=== PATIENT | male | born 1965 | race Caucasian/White ===

== ENCOUNTER 2016-09-23 08:08 | Day surgery (SDC) | payer MEDICARE, MEDICAID ==
[~2016-09-23] VITALS: Ht 172.7 cm; Wt 108.9 kg
[2016-09-23] VITALS (11 sets, daily range): BP systolic 100–123; BP diastolic 69–77; PULSE 52–79; TEMP 97.4
[2016-09-23 09:34] LABS: HEMATOCRIT 43.3 % (42.0-52.0); HEMOGLOBIN 15.2 g/dl (13.5-18.0); MEAN CELL VOLUME 93 fl (80.0-100.0); MEAN CORPUSCULAR HEMOGLOBIN 33 pg (27.0-31.0); MEAN CORPUSCULAR HGB CONC 35 g/dl (33.0-37.0); MEAN PLATELET VOLUME 9.4 fl (7.4-10.4); PLATELET COUNT 293 K/mm3 (130-400); RED BLOOD COUNT 4.66 M/mm3 (4.20-5.60); REDCELL DISTRIBUTION WIDTH-CV 12.3 % (11.5-14.5); WHITE BLOOD COUNT 7.9 K/mm3 (4.8-10.8)
[2016-09-23 09:37] LABS: INR 1.1 (0.8-3.0); PROTHROMBIN TIME 11.7 SECONDS (9.7-12.8)
[2016-09-23 09:38] LABS: CALCIUM 9.4 mg/dL (8.4-10.2); CREATININE, serum 0.93 mg/dL (0.66-1.25); POTASSIUM 3.6 mmol/L (3.4-5.0)
[2016-09-23] MEDS ORDERED: ASPIRIN 32325 MG/TAB PO (10:06)
[2016-09-23] MEDS ORDERED: DEBROX OT (10:07)
[2016-09-23] MEDS ORDERED: IPRATROPIUM BROM3 M1 IH (10:08)
[2016-09-23] MEDS ORDERED: CLARITIN 1010 MG/TAB PO (10:11)
[2016-09-23] MEDS ORDERED: PRINZIDE 12.5 M1 TAB PO (10:11)
[2016-09-23] MEDS ORDERED: ATIVAN 0.50.5 MG/TAB PO (10:12)
[2016-09-23] MEDS ORDERED: NEXIUM 40MG40 MG PO (10:13)
[2016-09-23] MEDS ORDERED: NITROSTAT0.4 MG/TAB SL (10:13)
[2016-09-23] MEDS ORDERED: INVEGA6 MG PO (10:14)
[2016-09-23] MEDS ORDERED: PAXIL 20MG20 MG PO (10:15)
== END 2016-09-23 15:00 | disposition home or self-care (01) ==
LOC: COL.RAD 08:08
PROVIDERS: Internal Medicine Cardiovascular Disease
DX: I25.10 Atherosclerotic heart disease of native coronary artery without angina pectoris (principal); R06.00 Dyspnea, unspecified; R07.89 Other chest pain; R00.2 Palpitations; R09.02 Hypoxemia; R06.02 Shortness of breath; R00.1 Bradycardia, unspecified; I10 Essential (primary) hypertension; K21.9 Gastro-esophageal reflux disease without esophagitis; F20.9 Schizophrenia, unspecified; Z79.82 Long term (current) use of aspirin; Z79.899 Other long term (current) drug therapy
CPT/HCPCS: C1760; J2250; J3010; Q9967